=== PATIENT | female | born 1980 | race Caucasian/White ===

== ENCOUNTER 2022-10-21 00:11 | Day surgery (SDC) | payer OTHER, SELFPAY ==
[2022-10-08 09:56] VITALS: BMI 25.8
--- NOTE | 2022-10-08 10:28 | PC.NURSE ---
Report to the Outpatient Waiting Room, entrance under the green pavilion located off [facility], at time 0600 on date 10/21/22. Planned Procedure Time: _0730. Time changes happen often and if your time is changed the preop area will call you the afternoon before. - You and your visitor will be asked to self-screen and do not enter if you have any COVID symptoms. - Only one visitor is requested with a max of two and NO children visitors are allowed at this time. - The patient visitor may be requested to leave or wait in car when not with patient due to distancing restrictions. - A mask is optional within the hospital at this time. Patients may have clear liquids (water, carbonated beverages, clear teas, apple juice) until 3 hours prior to surgery with a maximum of 20 ounces. - No food from midnight until time of surgery - Infants may have breast milk until 4 hours before surgery, formula 6 hours prior to surgery. - Children will be allowed to drink immediately following surgery. If applicable, please bring a bottle or sippy cup to assist with drinking. Juice, water, soda, and popsicles are readily available. For infants on formula, please bring formula the day of surgery. Pacifiers are allowed. Take the following medications with a SIP of water the morning of surgery: _n/a DO NOT STOP ANY OF YOUR OTHER PRESCRIPTION MEDICATIONS PRIOR TO SURGERY ?EXCEPT THE FOLLOWING Medications to discontinue per physician __vitamins/supplements____ Date to take last dose__10/08/22 Please no make-up, nail lao, hairspray, perfume, deodorant, or body powder the day of surgery. No jewelry (including any body piercings) or valuables the day of surgery, leave them at home. Please take a shower or bath the night before, or the morning of, surgery with an antibacterial soap. Wear comfortable, loose fitting clothing. Children are encouraged to wear pajamas. - Jewelry must be removed prior to entering the operating room. Rings and piercings that are not removed may be cut off. - The hospital will not accept responsibility for valuables. - Please leave all valuables, including medications, at home the day of surgery. If you are going home after surgery, a licensed special events driver must drive you home. - NO public transportation without another adult if you receive anesthesia. - We recommend that an adult stay with you for 24 hours following discharge. - We also recommend that you do not drive, make important decision, drink alcoholic beverages, or take any drugs that were not prescribed by your health care provider for at least 24 hours after your discharge time. For Pediatric surgeries, we recommend two adults accompany the child home. Follow any additional instructions given to you from your surgeon. If you or anyone in your household have experienced Covid symptoms in the past week, please notify your surgeon or the nurse liaison at the phone number below for possible testing. Telephone instructions given to Linda Rojas and asked if any additional questions and then verbalized understanding. Patient advised to call surgeon office or pre surgery nurse liaison [phone] if any additional questions.
--- NOTE | 2022-10-20 14:34 | P.PNAN_ITS ---
Anes - Initial Pre Proc Eval Procedure: Operation Date: 10/21/22 07:30 Proposed Procedures p Abdominoplasty with Liposuction - Rafael Hagen MD Date/Time: 10/20/22 14:34 Surgeon: Rafael Hagen MD Pre Op Diagnosis: skin laxity, localized adiposity Patient Data Age: 42 Gender: F Height: 1.57 m Weight: 64 kg Allergies Allergy/AdvReac Type Severity Reaction Status Date / Time No Known Allergies Allergy Unverified 10/21/22 06:49 Home Medications Medication Instructions Recorded Confirmed Type No Home Medications 03/11/22 10/21/22 History Patient hx anesthesia problems: none Family hx anesthesia problems: none Results Review: All pre-operative results and documents have been reviewed as part of the pre- operative evaluation. [facility] Past Medical History Medical History (Updated 10/20/22 @ 14:34 by Rush Bautista MD) Anxiety Surgical History Surgical History (Updated 03/11/22 @ 09:24 by Vidhya Garvey) Hx of section Social History Social History (Updated 03/11/22 @ 09:44 by Vidhya Garvey) Smoking status: Never smoker Alcohol intake: never Substance use: current Substance use type: marijuana Last use: 10/05/22 Living arrangements: with family Spiritual care concerns: No Anes - Eval Final PreProcedure Day of Procedure 10/20/22 14:34 Patient weight: normal Heart: regular rate and rhythm Lungs: clear to auscultation Airway: Mallampati scale class II Neurological: alert and oriented Last oral intake: >/= 8 hours ASA classification: II Emergent: no Anesthetic plan: proceed Anesthesia type and monitoring: general ETT and standard monitoring Results Review: All pre-operative results and documents have been reviewed as part of the pre- operative evaluation. Informed Consent: The patient's anesthetic plan and its attendant risks and benefits were discussed with the patient/family/POA. Questions were solicited and answers provided to the satisfaction of the patient/family/POA.
[2022-10-21] VITALS (11 sets, daily range): BP systolic 89–112; BP diastolic 50–74; PULSE 66–99; RESP 10–18; TEMP 36.6–37.4; O2SAT 95–98
[2022-10-21] MEDS: LACTATED RINGERS 1,000 ML 30 ML IV CONT ×2 (06:35→11:10)
[2022-10-21 06:46] LABS: Urine Cotinine NEGATIVE
--- NOTE | 2022-10-21 06:57 | WPDHPUPDATE1 ---
History and Physical Update Update Date/Time: 10/21/22 06:57 History and Physical has been reviewed, including an updated exam of the patient. There are NO changes in the patient's condition. Risks, benefits, and alternatives have been discussed and questions answered. Patient agrees to proceed with procedure.
--- NOTE | 2022-10-21 07:12 | W.PM.PROC2 ---
Procedure Note - Detailed Date of Procedure 10/21/22 Pre-op Diagnosis skin laxity, localized adiposity Post-op Diagnosis Same Procedure Performed Progressive tension abdominoplasty Surgeon Rafael Hagen MD Anesthesia General Findings Tissue removed: 1125 grams Lipoaspirate: 1500 cc Description of Procedure They are here today for abdominoplasty. Previously and again today the risks, benefits, alternatives were discussed in extensive detail. I wanted them to be very realistic about the risks involved as well as expectations. We discussed aftercare and what to monitor for. I was very upfront about the risks of wound breakdown leading to loss of skin, open wounds, and need for additional procedures with permanent abdominal deformity. We discussed DVT/PE risks and management. Made sure answered all of their questions to their satisfaction today and consent was obtained. They were marked in the preoperative holding area with their verification. The patient was taken to the operating room placed supine on the operating table. Anesthesia was provided by anesthesiology. A Da Silva catheter was started. They were prepped and draped in a standard sterile fashion. A surgical time-out was taken. I placed the patient in a flexed position to verify the upper and lower markings would reach. I then placed supine. A thorough abdominal examination was completed. Stab incisions were made and tumescent solution infiltrated. Once adequate time was allowed for hemostasis a 5mm basket cannula was utilized to complete suction lipectomy based on S.A.F.E. technique in multiple planes and passes. There were turned to bilateral lateral decubitus position with care taken to protect them for injury during this process. Suction lipectomy continued to result based on pre-operative planning, intra-operative observation, and rolling pinch test which were in full agreement. A 10 blade was used to make the upper incision. I continued dissection down to the level of fascia. Elevated just what was necessary for repair of the diastasis. I then again flexed the bed to verify the upper skin flap would reach the lower markings without tension. Once verified I placed her supine once again and a 10 blade used to make the lower incision. I elevated up to level the umbilicus and left the umbilicus intact on a well-vascularized stalk. The intervening tissue was removed. A 2 mm blunt cannula with 0.5% bupivicaine was injected deep to the fascia bilaterally. I plicated the diastasis recti using 0 PDO stratafix barbed suture. This was in 2 separate layers using 2 separate sutures as well. I repaired around the umbilicus leaving plenty of room for well-vascularized stalk of the umbilicus with 2-0 PDS. I also repaired lateral to the rectus using two layers of 0 PDO stratafix. The patient was flexed and starting from superior to inferior began plication using 2-0 Vicryl to obliterate all space in a standard progressive tension fashion. At the umbilicus I marked out the location of the skin and inset this with 3-0 Monocryl and 4-0 Vicryl. I continued the remainder of the plication using 2-0 Vicryl until I reached my lower planned scar line. I trimmed any excess skin of the upper flap making sure this was a tension-free closure. I then approximated using a 3 point suture with 2-0 Vicryl followed by 3-0 stratafix ,running subcuticular 4-0 Monocryl, and tissue glue. Fluffs and an abdominal binder were placed. The patient was transferred to the bed in a flexed position. Awoken and taken to the PACU without difficulty. All instrument and sponge counts were correct at the end of the case. Estimated Blood Loss 50 Drains No Pathology None sent Complications No immediate complications Condition Stable Disposition PACU
[2022-10-21] MEDS: TRANEXAMIC ACID 1,000MG/ISO100 1,000 MG/100 ML BAG 200 MG IVPB (07:30)
[2022-10-21] MEDS: ceFAZolin 2 GM/D5W 50 ML 2 GM/50 ML BAG IVPB (07:42)
[2022-10-21] MEDS: LACTATED RINGERS IRRIG 1,000 ML, LIDOCAINE HCL 1% LOCAL INJ 50 ML, EPINEPHrine HCL INJ ... INFILTRATE ×3 (08:01→08:49)
[2022-10-21] MEDS: BUPIVACAINE/EPINEPHRINE 0.5% 50 ML VIAL 60 ML INFILTRATE (08:51)
--- NOTE | 2022-10-21 12:22 | PC.NURSE ---
This patient, Linda Rojas, was received from PACU on 10/21/22 at 1222. Patient/family oriented to unit policies and routines.
[2022-10-21] MEDS: LACTATED RINGERS 1,000 ML 125 ML IV CONT ×2 (12:35→20:13)
[2022-10-21] MEDS: carisoprodoL (*CRX) 350 MG TABLET PO ×2 (12:58→18:49)
[2022-10-21] MEDS: KETOROLAC 15 MG/ML VIAL (*BKC) IV PUSH ×2 (12:59→18:49)
[2022-10-21] MEDS: oxyCODONE/ACETAMINOPHEN (*CRX) 5-325 MG TABLET PO ×2 (15:36→21:50)
[2022-10-21] MEDS: ENOXAPARIN 40 MG/0.4 ML SYRINGE SUB-Q (18:49)
[2022-10-21] MEDS: DOCUSATE SODIUM 100 MG CAPSULE PO (20:13)
[2022-10-22 00:30] VITALS: BP 84/46; PULSE 84; RESP 18; TEMP 36.8; O2SAT 98
[2022-10-22] MEDS: carisoprodoL (*CRX) 350 MG TABLET PO ×3 (00:46→13:51)
[2022-10-22] MEDS: KETOROLAC 15 MG/ML VIAL (*BKC) IV PUSH ×2 (00:46→09:21)
[2022-10-22] MEDS: oxyCODONE/ACETAMINOPHEN (*CRX) 5-325 MG TABLET PO ×2 (03:57→10:18)
[2022-10-22 04:00] VITALS: BP 85/52; PULSE 91; RESP 18; TEMP 36.1; O2SAT 98
--- NOTE | 2022-10-22 06:47 | WPDPN ---
Progress Note: A&P Assessment and Plan (1) Skin laxity: Code(s): L57.4 - Cutis laxa senilis Status: Acute Assessment and Plan: Doing well after progressive tension abdominoplasty with suction lipectomy. Will discharge home. Today we had a lengthy discussion about the care. What to monitor for. We discussed activity limitations. This was a lengthy open-ended conversation making sure I answered all questions. We discussed what is an emergency and when to proceed to the ER / dial 911. Call with all other questions or concerns. Voiced a clear understanding. I will see them back. (2) Localized adiposity: Code(s): E65 - Localized adiposity Status: Acute Subjective Date/time seen: 10/22/22 06:47 Interval history: She has done very well after progressive tension abdominoplasty. Pain controlled. No nausea vomiting. No fevers or chills. No shortness of breath. No chest pain. No calf tenderness. Last evening when getting up she had a little lightheadedness that quickly resolved. This is improved today. Review of Systems Review of Systems: All systems reviewed & are unremarkable except as noted in HPI and below Exam Narrative: Alert & Oriented NOD Respiratory unlabored Abdomen healing well. No signs of infection. No hematoma. No seroma. Good color and capillary refill. No calf tenderness. Negative Tess's Objective Data Vital Signs Vital Signs: Vital Signs - 24 hr 10/21/22 11:15 10/21/22 11:30 10/21/22 11:45 Temperature 37.1 C Pulse Rate 99 80 74 Respiratory Rate 15 16 10 L Blood Pressure 112/69 103/72 108/72 Pulse Oximetry 96 97 97 Oxygen Delivery Room Air Room Air Room Air 10/21/22 12:00 10/21/22 12:10 10/21/22 12:17 Temperature Pulse Rate 70 66 69 Respiratory Rate 13 14 16 Blood Pressure 101/74 100/69 103/70 Pulse Oximetry 98 96 98 Oxygen Delivery Room Air Room Air Room Air 10/21/22 12:25 10/21/22 15:40 10/21/22 19:30 Temperature 36.6 C 37.0 C Pulse Rate 77 79 86 Respiratory Rate 16 16 18 Blood Pressure 110/68 96/58 L Pulse Oximetry 97 95 98 Oxygen Delivery Room Air 10/21/22 19:30 10/21/22 20:20 03/01/23 00:30 Temperature 37.4 C Pulse Rate 86 84 Respiratory Rate 18 18 Blood Pressure 89/50 L 91/57 L Pulse Oximetry 98 98 Oxygen Delivery Room Air 10/22/22 00:30 10/22/22 04:00 10/22/22 04:00 Temperature 36.8 C 36.1 C L Pulse Rate 84 91 91 Respiratory Rate 18 18 18 Blood Pressure 84/46 L 85/52 L Pulse Oximetry 98 98 98 Oxygen Delivery Room Air Intake/Output Intake/Output: Intake & Output 10/19/22 10/20/22 10/21/22 10/22/22 23:59 23:59 23:59 23:59 Intake Total 2650 700 Output Total 1140 1550 Balance 1510 -850 Meds/Results Medications: Active Medications Generic Name Dose Route Start Last Admin Trade Name Freq PRN Reason Stop Dose Admin Carisoprodol 350 mg 10/21/22 12:00 10/22/22 00:46 Carisoprodol (*Crx) 350 Mg Tablet PO 350 mg Q6HR MAX Administration Diazepam 5 mg 10/21/22 11:10 Diazepam (*Crx) 5 Mg Tablet PO TID PRN Anxiety Docusate Sodium 100 mg 10/21/22 21:00 10/21/22 20:13 Docusate Sodium 100 Mg Capsule PO 100 mg Q12HR MAX Administration Enoxaparin Sodium 40 mg 10/21/22 18:00 10/21/22 18:49 Enoxaparin 40 Mg/0.4 Ml Syringe SUB-Q 40 mg DAILY@1800 MAX Administration Lactated Ringer's 1,000 mls @ 125 mls/hr 10/21/22 11:10 10/22/22 04:00 Lr - Lactated Ringers Iv IV CONT 0 mls/hr .Q8H MAX Infusion Ketorolac Tromethamine 15 mg 10/21/22 11:10 10/22/22 00:46 Ketorolac 15 Mg/Ml Vial (*Bkc) IV PUSH 15 mg Q6H PRN Administration Pain Rated 4-6 Morphine Sulfate 2 mg 10/21/22 11:10 Morphine Sulfate (*Crx) 2 Mg/Ml Inj IV PUSH Q2H PRN Pain Ondansetron HCl 4 mg 10/21/22 11:10 Ondansetron Inj 4 Mg/2 Ml Vial IV PUSH Q6H PRN Nausea Oxycodone/Acetaminophen 1 - 2 tablet 10/21/22 11:10 03/0
--- NOTE | 2022-10-22 06:49 | P.DS_ITS ---
DS: Admitting Diagnosis Discharge Date 10/22/2022 Admitting Diagnosis Skin laxity Localized adiposity DS: Discharge Diagnosis Discharge Diagnosis (1) Skin laxity: Code(s): L57.4 - Cutis laxa senilis Status: Acute (2) Localized adiposity: Code(s): E65 - Localized adiposity Status: Acute DS: Summary Hospital Course Hospital Course: She underwent progressive tension abdominoplasty with suction lipectomy. Postoperative has done well. Will discharge home. Time Spent with Patient Time attestation: Total time spent providing and/or coordinating discharge services: Exam Narrative: Alert & Oriented NOD Respiratory unlabored Abdomen healing well. No signs of infection. No hematoma. No seroma. Good color and capillary refill. No calf tenderness. Negative Tess's Discharge Plan Discharge Patient Disposition: Home, Self-Care Discharge Instructions: POST OPERATIVE DISCHARGE INSTRUCTIONS RAFAEL HAGEN M.D. [facility] [address] [facility] [address] [place] [address] * No driving for 24 hours after anesthesia and while you are taking pain m edication. * Take all prescribed medication as directed * Diet as tolerated. * No lifting or activity that raises blood pressure for 48 hours. * Regular walking / ambulation. * May shower 24 hours after surgery. Once you shower do not take pain medication before showering as the combination of medication and heat may cause you to feel dizzy or pass out. * No pools or tubs for 2 weeks. * Slowly stand up straight as tolerated. * No straining or lifting more than 20 pounds. * If no bowel movement within 24 hours may use laxative. * Call with any questions or concerns. * Dressing Care: Continue abdominal binder / foam 23 hours per day. If you have any questions or concerns, please call the office . If it is after hours you will be directed to the electronic operator exchange. Shortness of breath, chest pain, or other medical emergency dial 911 / proceed to the Emergency Room. Stand Alone Forms: General Discharge Instructions Follow-up/Referrals: Rafael Hagen MD [Physician] - 1 Week Discharge Medications: No Action No Home Medications
--- NOTE | 2022-10-22 06:49 | PM.DS ---
DS: Admitting Diagnosis Discharge Date 10/22/2022 Admitting Diagnosis Skin laxity Localized adiposity DS: Discharge Diagnosis Discharge Diagnosis (1) Skin laxity: Code(s): L57.4 - Cutis laxa senilis Status: Acute (2) Localized adiposity: Code(s): E65 - Localized adiposity Status: Acute DS: Summary Hospital Course Hospital Course: She underwent progressive tension abdominoplasty with suction lipectomy. Postoperative has done well. Will discharge home. Time Spent with Patient Time attestation: Total time spent providing and/or coordinating discharge services: Exam Narrative: Alert & Oriented NOD Respiratory unlabored Abdomen healing well. No signs of infection. No hematoma. No seroma. Good color and capillary refill. No calf tenderness. Negative Tess's Discharge Plan Discharge Patient Disposition: Home, Self-Care Discharge Instructions: POST OPERATIVE DISCHARGE INSTRUCTIONS RAFAEL HAGEN M.D. [facility] [address] [place] [address] No driving for 24 hours after anesthesia and while you are taking pain medication. Take all prescribed medication as directed Diet as tolerated. No lifting or activity that raises blood pressure for 48 hours. Regular walking / ambulation. May shower 24 hours after surgery. Once you shower do not take pain medication before showering as the combination of medication and heat may cause you to feel dizzy or pass out. No pools or tubs for 2 weeks. Slowly stand up straight as tolerated. No straining or lifting more than 20 pounds. If no bowel movement within 24 hours may use laxative. Call with any questions or concerns. Dressing Care: Continue abdominal binder / foam 23 hours per day. If you have any questions or concerns, please call the office . If it is after hours you will be directed to the construction and maintenance inspector exchange. Shortness of breath, chest pain, or other medical emergency dial 911 / proceed to the Emergency Room. Stand Alone Forms: General Discharge Instructions Follow-up/Referrals: Rafael Hagen MD [Physician] - 1 Week Discharge Medications: No Action No Home Medications
[2022-10-22 07:30] VITALS: BP 82/55; PULSE 70; RESP 16; TEMP 36.4; O2SAT 98
--- NOTE | 2022-10-22 08:57 | WPDANESPN ---
Anes - Prog Note Post-Op Date/Time: 10/22/22 08:57 Vital Signs: Last Vital Signs Temp 97 F L 10/22/22 04:00 Pulse 91 10/22/22 04:00 Resp 18 10/22/22 04:00 BP 85/52 L 10/22/22 04:00 Pulse Ox 98 10/22/22 04:00 O2 Del Method Room Air 10/22/22 04:00 Pain Score (VAS): 0 I/O: Intake & Output 10/21/22 10/22/22 10/22/22 23:59 07:59 15:59 Intake Total 1000 700 Output Total 1550 Balance 1000 -850 Patient Feedback: Patient satisfied with anesthetic care.
[2022-10-22] MEDS: DOCUSATE SODIUM 100 MG CAPSULE PO (10:18)
== END 2022-10-22 14:30 | disposition home or self-care (01) ==
LOC: ANHSURGERY 07:13 → ANHOB2 12:22
PROVIDERS: Visit Provider Surgery Plastic and Reconstructive Surgery
PROC: (CPT 15830; principal; 2022-10-21 07:30)
DX: Z41.1 Encounter for cosmetic surgery (principal); L57.4 Cutis laxa senilis; E65 Localized adiposity; F12.90 Cannabis use, unspecified, uncomplicated
CPT/HCPCS: 15830; 15847; 15877; 80307; 99199; A9270; J0171; J0690; J1100; J1170; J1650; J1885; J2250; J2370; J2405; J2704; J3010; J7120